=== PATIENT | male | born 1975 | race Caucasian/White ===

== ENCOUNTER 2018-01-02 23:08 | Emergency (ER) | payer MEDICAID ==
[2018-01-03 03:24] VITALS: BP 184/106
== END 2018-01-03 03:24 | disposition home or self-care (01) ==
LOC: ED 23:08
DX: J06.9 Acute upper respiratory infection, unspecified (principal); I10 Essential (primary) hypertension
CPT/HCPCS: 87804

== ENCOUNTER 2019-06-07 03:06 | Emergency (ER) | payer OTHER ==
[~2019-06-07] VITALS: Ht 175.3 cm; Wt 82.8 kg
[2019-06-07 03:11] VITALS: Ht 175.3 cm; Wt 82.8 kg
[2019-06-07 04:48] VITALS: BP 149/91
== END 2019-06-07 04:48 | disposition home or self-care (01) ==
LOC: ED 03:06
DX: B35.3 Tinea pedis (principal); I10 Essential (primary) hypertension

== ENCOUNTER 2019-06-08 03:01 | Emergency (ER) | payer OTHER ==
[~2019-06-08] VITALS: Ht 175.3 cm; Wt 86.2 kg
[2019-06-08 03:08] VITALS: Ht 175.3 cm; Wt 86.2 kg
[2019-06-08 06:13] VITALS: BP 132/69
== END 2019-06-08 06:13 | disposition home or self-care (01) ==
LOC: ED 03:01
DX: F25.9 Schizoaffective disorder, unspecified (principal); F17.210 Nicotine dependence, cigarettes, uncomplicated; I10 Essential (primary) hypertension; Z87.442 Personal history of urinary calculi
CPT/HCPCS: 99406

== ENCOUNTER 2019-06-11 11:39 | Emergency (ER) | payer OTHER ==
[~2019-06-11] VITALS: Ht 175.3 cm; Wt 84.4 kg
[2019-06-11 11:45] VITALS: Ht 175.3 cm; Wt 84.4 kg
[2019-06-11 14:18] VITALS: BP 123/59
== END 2019-06-11 14:18 | disposition home or self-care (01) ==
LOC: ED 11:39
DX: J20.9 Acute bronchitis, unspecified (principal); I10 Essential (primary) hypertension; F17.210 Nicotine dependence, cigarettes, uncomplicated; Z87.442 Personal history of urinary calculi; Z88.6 Allergy status to analgesic agent
CPT/HCPCS: 99406; J7512